=== PATIENT | female | born 1955 | race Caucasian/White ===

== ENCOUNTER 2017-06-06 15:36 | Emergency (ER) | payer BC ==
[~2017-06-06] VITALS: Ht 157.5 cm; Wt 66.0 kg
[~2017-06-06 15:36] MED LIST: ASPI1TAB7 PO; LEVO25TA4 PO; LISI-519 PO; SIMV10TA PO
[2017-06-06 15:41] VITALS: BP 155/68; PULSE 73; RESP 16; TEMP 97.4; O2SAT 99
[2017-06-06 15:50] LABS: BILIRUBIN, URINE NEG (NEG); BLOOD, URINE LARGE (NEG); GLUCOSE,URINE NEG (NEG); KETONE, URINE NEG (NEG); NITRITE,URINE NEG (NEG); PH, URINE 5.5 (5.0-8.5); URINE LEUKOCYTE ESTERASE NEG (NEG)
[2017-06-06 15:56] LABS: URINE COLOR YELLOW (YELLW/STRAW)
[2017-06-06 15:57] LABS: RBC, URINE INNUM /hpf (0-3); SQUAMOUS EPITHELIAL CELL URINE > 8 /hpf (0-5); WBC, URINE 15-19 /hpf (0-5)
[2017-06-06] MEDS ORDERED: ASPI81CH6 CHEW (15:59)
[2017-06-06] MEDS ORDERED: NITROFURANTOIN MONOHYD MACROCR 100 MG CAP PO ONE (16:45)
[2017-06-06] MEDS ORDERED: PHENAZOPYRIDINE HCL 200 MG TAB PO ONE (16:45)
[2017-06-06] MEDS ORDERED: MACR100C2 PO (16:48)
--- NOTE | 2017-06-06 16:48 | PD ---
HPI Chief Complaint: Complaint Time Seen by Provider: 16:30 Travel History International Travel<30 days: No Contact w/Intl Traveler<30days: No Traveled to known affect area: No History of Present Illness HPI 61-year-old female presents to the ED for evaluation of less than 24-hour history of lower abdominal discomfort, urinary urgency and mild dysuria. She denies fever, chills, nausea, vomiting, back pain. She states that she has a recent history of kidney stone and is followed by a local urologist. She states this pain is not like her kidney stone pain. She has an upcoming appointment later this week. No treatment at home. PFSH Past Medical History High Cholesterol: Yes Hypertension: Yes Kidney Stones: Yes Thyroid Disease: Yes Influenza Vaccination: No Menopausal: Yes Past Surgical History Abdominal Surgery: Yes (abdonimal hernia repair) Section: Yes (x2) Hysterectomy: Yes Social History Alcohol Use: Yes (socially wine) Tobacco Use: Yes Substance Use: No Allergies-Medications (Allergen,Severity, Reaction): Coded Allergies: No Known Allergies (Verified Allergy, Unknown, 06/06/17) Reported Meds & Prescriptions Reported Meds & Active Scripts Active Macrobid (Nitrofurantoin Monoh/Nitrofur Macro) 100 Mg Cap 100 Mg PO BID 7 Days Lisinopril 5 Mg Tab 5 Mg PO DAILY Simvastatin 10 Mg Tab 10 Mg PO DAILY Levothyroxine (Levothyroxine Sodium) 25 Mcg Tab 25 Mcg PO DAILY Reported Aspirin Low Dose (Aspirin) 81 Mg Chew 81 Mg CHEW DAILY Review of Systems Except as stated in HPI: all other systems reviewed are Neg Physical Exam Narrative GENERAL: Well-nourished, well-developed white female in no acute distress. SKIN: Focused skin assessment warm/dry. HEAD: Normocephalic. EYES: No scleral icterus. No injection or drainage. NECK: Supple, trachea midline. No JVD or lymphadenopathy. CARDIOVASCULAR: Regular rate and rhythm without murmurs, gallops, or rubs. RESPIRATORY: Breath sounds equal bilaterally. No accessory muscle use. GASTROINTESTINAL: Abdomen soft, active bowel sounds, nondistended. Mild Suprapubic tenderness. MUSCULOSKELETAL: No cyanosis, or edema. BACK: Nontender without obvious deformity. No CVA tenderness. Data Data Last Documented VS Vital Signs Date Time Temp Pulse Resp B/P (MAP) Pulse Ox O2 Delivery O2 Flow Rate FiO2 06/06/17 15:41 97.4 73 16 155/68 (97) 99 Orders Orders Urinalysis - C+S If Indicated (06/06/17 15:44) Urine Culture (06/06/17 15:45) Nitrofurantoin Monohyd Macrocr (Macrobid (06/06/17 16:45) Phenazopyridine (Pyridium) (06/06/17 16:45) Ed Discharge Order (06/06/17 16:49) Labs Laboratory Tests Test 06/06/17 15:45 Urine Collection Type CLEAN CATCH Urine Color YELLOW Urine Turbidity SLIGHT Urine pH 5.5 Urine Specific [place] 1.013 Urine Protein NEG mg/dL Urine Glucose (UA) NEG mg/dL Urine Ketones NEG mg/dL Urine Occult Blood LARGE Urine Nitrite NEG Urine Bilirubin NEG Urine Leukocyte Esterase NEG Urine RBC INNUM /hpf Urine WBC 15-19 /hpf Urine Squamous Epithelial Cells > 8 /hpf Microscopic Urinalysis Comment CULTURE INDICATED Urine Collection Time 15:45 [facility] Medical Decision Making Medical Screen Exam Complete: Yes Emergency Medical Condition: Yes Differential Diagnosis Cystitis versus pyelonephritis versus nephroureterolithiasis versus other Narrative Course 61-year-old female presents to the ED for evaluation of less than 24-hour history of lower abdominal discomfort, urinary urgency and mild dysuria. She denies fever, chills, nausea, vomiting, back pain. She states that she has a recent history of kidney stone and is followed by a local urologist. She states this pain is not like her kidney stone pain. Patient afebrile on presentation. There is mild suprapubic tenderness. No CVA tenderness. UA positive for WBCs and large acute blood. Will treat for cystitis. Patient's prescribed Macrobid 100 mg twice a day 7 days, first dose administered in the ED. She was also administered a single dose of Pyridium. She instructed to follow-up with her urologist as planned. She indicated understanding of instructions and is agreeable the care plan. She is stable and discharged home. Diagnosis Primary Impression: Urinary tract infection Qualified Codes: N39.0 - Urinary tract infection, site not specified; R31.9 - Hematuria, unspecified Referrals: Urologist Patient Instructions: General Instructions, Urinary Tract Infection in Women ( ED) Additional Instructions: Rest, hydrate. Take antibiotics as they are prescribed until every pill is gone. An qurg-beb-nbzhbky medication called AZO may help to reduce your pain symptoms. Make sure the Azo formulation contains a medication called Pyridium. This medication may turn urine bright orange. This is an expected side effect and not harmful. Follow-up with the urologist as planned. Return to the ED for any urgent or emergent medical condition. Med/Other Pt SpecificInfo: Prescription(s) given Scripts Nitrofurantoin Monohydrate Macrocrystals (Macrobid) 100 Mg Cap 100 MG PO BID for Infection for 7 Days, #14 CAP 0 Refills Prov: Caitie Maddox MD 06/06/17 Disposition: 01 DISCHARGE HOME Condition: Stable Brigid Morales Jun 06, 2017 16:48
== END 2017-06-06 16:54 | disposition home or self-care (01) ==
LOC: PHEFT 15:36
DX: N39.0 Urinary tract infection, site not specified (principal); B96.89 Other specified bacterial agents as the cause of diseases classified elsewhere; I10 Essential (primary) hypertension; Z87.442 Personal history of urinary calculi; Z72.0 Tobacco use
CPT/HCPCS: 81001; 87086; 99283